=== PATIENT | female | born 1980 | race Caucasian/White ===

== ENCOUNTER → 2023-04-16 | Outpatient (CLI) | payer BC ==
--- NOTE | 2023-04-17 18:29 | MM ---
Reason for Exam: Screening (asymptomatic). Baseline mammogram. Patient History: Menarche at age 12. First Full-Term at age 28. Patient has history of breast feeding. Unspecified Hormone, starting at age 40. Maternal grandmother had ovarian cancer, age 55. Last menstrual period: 03/27/2023 Risk Values: Magdalena 5 year model risk: 0.7%. NCI Lifetime model risk: 12.0%. Prior Study Comparison: Patient's first Mammogram. Tissue Density: The breast tissue is heterogeneously dense. This may lower the sensitivity of mammography. Findings: Analyzed By CAD. Pattern appears symmetrical. No suspicious groups of microcalcifications, spiculated or lobular masses, architectural distortion or other secondary signs of malignancy are mammographically apparent. Overall Assessment: Negative, BI-RAD 1 Management: Screening Mammogram of both breasts in 1 year. A negative mammogram report should not preclude additional follow up of suspicious palpable abnormalities. Patient should continue monthly self breast exam. A clinical breast exam by your physician is recommended on an annual basis and results should be correlated with mammographic findings. Electronically signed and approved by: Dre Hurley D.O. Radiologis
== END | disposition home or self-care (01) ==
LOC: RADMAMWWP 08:20
PROVIDERS: ATTEND Family Medicine
DX: Z12.31 Encounter for screening mammogram for malignant neoplasm of breast (principal)
CPT/HCPCS: 77063; 77067

== ENCOUNTER → 2024-07-11 | Outpatient (CLI) | payer BC ==
--- NOTE | 2024-07-11 13:39 | MM ---
Reason for Exam: Screening (asymptomatic). Last mammogram was performed 1 year(s) and 2 month(s) ago. Patient History: Menarche at age 12. First Full-Term at age 28. Patient has history of breast feeding. Unspecified Hormone, starting at age 40. Maternal grandmother had ovarian cancer, age 55. Risk Values: Magdalena 5 year model risk: 0.8%. NCI Lifetime model risk: 11.9%. Prior Study Comparison: 04/16/2023 Bilateral MG 3D screening mammo w/cad, [facility]. Tissue Density: There are scattered areas of fibroglandular density. Findings: Analyzed By CAD. There is no suspicious group of microcalcifications or new suspicious mass in either breast. Overall Assessment: Negative, BI-RAD 1 Management: Screening Mammogram of both breasts in 1 year. . Patient should continue monthly self-breast exams. A clinical breast exam by your physician is recommended on an annual basis. This exam should not preclude additional follow-up of suspicious palpable abnormalities. Note on Magdalena scores and lifetime risk: 1. A Magdalena score greater than 3% is considered moderate risk. If this is the case, consider specialist referral to assess eligibility for a risk reducing agent. 2. If overall lifetime risk for the development of breast cancer is 20% or higher, the patient may qualify for future screening with alternating mammogram and breast MRI. [facility], , 07/11/2024 1:36 PM. Electronically signed and approved by: Heri Chapa M.D. Radiologis
== END | disposition home or self-care (01) ==
LOC: RADMAMWWP 13:02
PROVIDERS: ATTEND Family Medicine
DX: Z12.31 Encounter for screening mammogram for malignant neoplasm of breast (principal); R92.323 Mammographic fibroglandular density, bilateral breasts; Z80.3 Family history of malignant neoplasm of breast
CPT/HCPCS: 77063; 77067

== ENCOUNTER 2024-09-19 08:24 | Day surgery (SDC) | payer BC ==
[2024-09-15 14:49] VITALS: BMI 29.9
[~2024-09-19 08:24] MED LIST: LIDOCAINE 1% (10MG/ML) FOR IV START INTRADERMA PRN
[2024-09-19 08:49] VITALS: TEMP 98.2
[2024-09-19] MEDS: LACTATED RINGERS 1,000 ML IV SCH (08:56)
[2024-09-19] MEDS: IV FLUID CONTINUATION 1,000 ML IV ONE (08:57)
[2024-09-19] MEDS ORDERED: LIDOCAINE 1% INJ 10MG/ML (20 ML MDV) ONE (09:16)
[2024-09-19] MEDS ORDERED: PROPOFOL 10 MG/ML 20 ML VIAL IV ONE (09:16)
[2024-09-19 09:40] VITALS: RESP 16
[2024-09-19 09:48] VITALS: BP 110/68; PULSE 65
--- NOTE | 2024-09-19 20:54 | P.OP ---
Date of Procedure: 09/19/24 Preoperative Diagnosis: Screening Postoperative Diagnosis: Normal Colon Procedure(s) Performed: Colonoscopy Anesthesia: MAC Surgeon: Primitivo Young Pathology: none sent Condition: stable Disposition: PACU Description of Procedure: After informed consent was obtained, the patient was placed in the left lateral position and the above medications were titrated with adequate sedation. Monitoring was provided throughout the entire procedure. Digital rectal exam was performed revealing normal sphincter tone and no external hemorrhoids. The Pentax video colonoscope was inserted into rectum and advanced under direct visualization, without difficulty, to the cecum, where the cecal strap, appendiceal orifice, and the ileocecal valve were identified. The quality of the preparation was good. The colonoscope was then withdrawn while carefully examining the mucosa. The colonic mucosa appeared normal with normal vascularity and haustral markings. No masses, polyps, AVM/s or diverticula were seen. On retroflexed view in the rectum, there are small internal hemorrhoids. The endoscope was removed and the procedure terminated. The patient tolerated the procedure well without complications.
== END 2024-09-19 10:01 | disposition home or self-care (01) ==
LOC: ORWHC2ENDO 08:24
PROVIDERS: ATTEND Surgery
DX: Z12.11 Encounter for screening for malignant neoplasm of colon (principal); Z80.0 Family history of malignant neoplasm of digestive organs
CPT/HCPCS: 81025; 45378; J2003; J2704